=== PATIENT | male | born 2000 | race Caucasian/White ===

== ENCOUNTER 2019-07-13 03:33 | Emergency (ER) | payer SELFPAY ==
[~2019-07-13] VITALS: Ht 165.1 cm; Wt 51.7 kg
[2019-07-13 03:40] VITALS: Ht 165.1 cm; Wt 51.7 kg
[2019-07-13 05:11] VITALS: BP 130/71
== END 2019-07-13 05:09 | disposition home or self-care (01) ==
LOC: ED 03:33
DX: S00.83XA Contusion of other part of head, initial encounter (principal); V00.131A Fall from skateboard, initial encounter; Y93.51 Activity, roller skating (inline) and skateboarding; Y92.89 Other specified places as the place of occurrence of the external cause; Y99.8 Other external cause status